=== PATIENT | male | born 1990 | race Caucasian/White ===

== ENCOUNTER 2019-01-19 13:44 | Emergency (ER) | payer OTHER ==
[2019-01-19 13:49] VITALS: RESP 18; TEMP 99
[2019-01-19] MEDS ORDERED: IBUPROFEN 600 MG STARTER PACK 4 TAB BTL PO STA (14:14)
[2019-01-19] MEDS ORDERED: IBUPROFEN 600 MG TAB PO STA (14:14)
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
--- NOTE | 2019-01-19 14:55 | XR ---
EXAMINATION TYPE: XR chest 2V DATE OF EXAM: 01/19/2019 COMPARISON: NONE HISTORY: Chest pain TECHNIQUE: Frontal and lateral views of the chest are obtained. FINDINGS: There is no focal air space opacity. No evidence for pneumothorax. No pleural effusion. The cardiac silhouette size is within normal limits. The osseous structures are grossly intact. IMPRESSION: 1. No acute cardiopulmonary process.
--- NOTE | 2019-01-19 14:55 | XR ---
EXAMINATION TYPE: XR pelvis AP view DATE OF EXAM: 01/19/2019 CLINICAL HISTORY: pain TECHNIQUE: Single view the pelvis is submitted. FINDINGS: No evidence for fracture, dislocation or bony lesion. Joint spaces are well-preserved. S I joints appear symmetric. IMPRESSION: 1. No acute fracture or dislocation seen. ICD 10 NO FRACTURE, INITIAL EVALUATION
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
[2019-01-19 15:07] LABS: Appearance,Urine Clear (Clear); Bilirubin,Urine Negative (Negative); Blood,Urine Negative (Negative); Color,Urine Yellow; Glucose,Urine (UA) Negative (Negative); Ketones,Urine Negative (Negative); Leukocyte Esterase,Urine Small (Negative); Mucus,Urine Rare /hpf; Nitrite,Urine Negative (Negative); Protein,Urine Trace (Negative); RBC,Urine 1 /hpf (0-5); Specific Gravity,Urine 1.012 (1.001-1.035); Squamous Epithelial Cell,Urine <1 /hpf (0-4); Urobilinogen,Urine <2.0 mg/dL (<2.0); WBC,Urine 2 /hpf (0-5)
[2019-01-19] MEDS ORDERED: LIDOCAINE 1% INJ 10MG/ML (20 ML MDV) SQ STA (15:09)
[2019-01-19] MEDS ORDERED: CEPHALEXIN 500MG STARTER PACK 4 CAP BTL PO STA (15:49)
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
[2019-01-19 16:45] VITALS: BP 130/84; PULSE 84
== END 2019-01-19 16:36 | disposition home or self-care (01) ==
LOC: EC 13:44
DX: S51.011A Laceration without foreign body of right elbow, initial encounter (principal); M25.562 Pain in left knee; M25.572 Pain in left ankle and joints of left foot; F17.200 Nicotine dependence, unspecified, uncomplicated; V85.5XXA Driver of special construction vehicle injured in nontraffic accident, initial encounter; Y92.009 Unspecified place in unspecified non-institutional (private) residence as the place of occurrence of the external cause; Y99.0 Civilian activity done for income or pay
CPT/HCPCS: 81001; 72170; 73080; 73090; 73564; 73610; 71046; 99285; 12002; J2001

== ENCOUNTER 2019-04-12 18:50 | Emergency (ER) | payer OTHER ==
[2019-04-12 19:00] VITALS: BP 139/90; PULSE 85; RESP 20; TEMP 99.2
[2019-04-12] MEDS ORDERED: IBUPROFEN 600 MG TAB PO STA (19:19)
--- NOTE | 2019-04-12 19:51 | XR ---
EXAMINATION TYPE: XR shoulder complete RT DATE OF EXAM: 04/12/2019 COMPARISON: NONE HISTORY: Pain TECHNIQUE: 3 views FINDINGS: I see no fracture nor dislocation. Joint spaces are normal. There are no pathologic calcifi cations. IMPRESSION: Negative right shoulder exam.
--- NOTE | 2019-04-12 19:52 | XR ---
EXAMINATION TYPE: XR chest 2V DATE OF EXAM: 04/12/2019 COMPARISON: 01/19/2019 HISTORY: Shoulder pain TECHNIQUE: Frontal and lateral views of the chest are obtained. FINDINGS: Heart and mediastinum are normal. Lungs are clear. Diaphragm is normal. Bony thorax appear s intact. IMPRESSION: Normal chest. No change.
--- NOTE | 2019-04-12 20:37 | ED ---
General Adult HPI - General Chief complaint: Fall Stated complaint: Shoulder Injury Time Seen by Provider: 04/12/19 19:04 Source: patient, RN notes reviewed, old records reviewed Mode of arrival: ambulatory Limitations: no limitations - History of Present Illness Initial comments: 28-year-old male patient presents to ED with chief complaint of right shoulder injury. Patient reports that he was at work today when he slipped on ice, patient reports that he fell backwards he caught himself with his right arm. Patient states felt a pop and pain in his right shoulder. Patient was a has a pain in his shoulder since. Denies any other injury. Denies any trauma to head or neck. Systemic: Pt denies fatigue, fever/chills, rash. Pt denies weakness, night sweats, weight loss. Neuro: Pt denies headache, visual disturbances, syncope or pre-syncope. HEENT: Pt denies ocular discharge or irritation, otalgia, rhinorrhea, pharyngitis or notable lymphadenopathy. Cardiopulmonary: Pt denies chest pain, SOB, heart palpitations, dyspnea on exertion. Abdominal/GI: Pt denies abdominal pain, n/v/d. : Pt denies dysuria, burning w/ urination, frequency/urgency. Denies new onset urinary or bowel incontinence. Neuro: Pt denies new onset weakness, paresthesias. - Related Data Previous Rx's Medication Instructions Recorded Cephalexin [Keflex] 500 mg PO Q6HR 3 Days #12 cap 01/19/19 Allergies Allergy/AdvReac Type Severity Reaction Status Date / Time No Known Allergies Allergy Verified 04/12/19 19:00 Review of Systems ROS Statement: Those systems with pertinent positive or pertinent negative responses have been documented in the HPI. ROS Other: All systems not noted in ROS Statement are negative. Past Medical History Past Medical History: No Reported History History of Any Multi-Drug Resistant Organisms: None Reported Additional Past Surgical History / Comment(s): JAW Past Psychological History: No Psychological Hx Reported Smoking Status: Current every day smoker Past Alcohol Use History: Rare Past Drug Use History: None Reported General Exam - General Exam Comments Initial Comments: Constitutional: NAD, AOX3, Pt has pleasant affect. HEENT: NC/AT, trachea midline, neck supple, no lymphadenopathy. Posterior pharynx non erythematous, without exudates. External ears appear normal, without discharge. Mucous membranes moist. Eyes PERRLA, EOM intact. There is no scleral icterus. No pallor noted. Cardiopulmonary: RRR, no murmurs, rubs or gallops, no JVD noted. Lungs CTAB in anterior and posterior regan. No peripheral edema. Abdominal exam: Abdomen soft and non-distended. Abdomen non-tender to palpation in all 4 quadrants. Bowel sounds active in LLQ. No hepatosplenomegaly. No ecchymosis Neuro: CN II-XII grossly intact. No nuchal rigidity. No raccon eyes, no vazquez sign, no hemotympanum. No cervical spinal tenderness. MSK: Right anterior shoulder mildly tender to palpation. No localized area tenderness, no before meals joint tenderness. Full active range of motion is intact. Empty can test is positive. Painful arc is positive. Neurovascularly intact. Slightly diminished strength on right side compared to left. No posterior calf tenderness bilaterally, homans sign negative bilaterally. Posterior tibialis and radial pulse +2 bilaterally. Sensation intact in upper and lower extremities. Full active ROM in upper and lower extremities, 5/5 stregnth. Limitations: no limitations Course Vital Signs 04/12/19 18:56 Temperature 99.2 F Pulse Rate 85 Respiratory 20 Rate Blood Pressure 139/90 O2 Sat by Pulse 99 Oximetry Medical Decision Making - Medical Decision Making 28-year-old male patient presents to ED with chief complaint of right shoulder strain following an injury from earlier today. Patient vital signs are stable, afebrile. Physical exam displayed right anterior shoulder mildly tender to palpation. Empty can test positive. Slight decreased strength on the right side. Neurovascularly intact. Plain films of shoulder and chest x-ray are negative. Edition for possible rotator cuff injury. Patient discharged with outpatient orthopedic follow-up as well as occupational health follow-up. Case discussed with Dr. Daigle. Disposition Clinical Impression: Shoulder sprain Disposition: HOME SELF-CARE Condition: Stable Instructions (If sedation given, give patient instructions): Shoulder Sprain (ED) Additional Instructions: Follow-up with primary care provider and orthopedic consult tomorrow. Do not use right upper extremity for heavy lifting or vigorous exercise. Return to ER if condition worsens. Is patient prescribed a controlled substance at d/c from ED?: No Referrals: None,Stated [Primary Care Provider] - 1-2 days Hermilo Hardwick DO [Medical Doctor] - 1-2 days
== END 2019-04-12 20:56 | disposition home or self-care (01) ==
LOC: EC 18:50
DX: S43.401A Unspecified sprain of right shoulder joint, initial encounter (principal); F17.200 Nicotine dependence, unspecified, uncomplicated; W00.0XXA Fall on same level due to ice and snow, initial encounter; Y99.0 Civilian activity done for income or pay; Y92.69 Other specified industrial and construction area as the place of occurrence of the external cause
CPT/HCPCS: 71046; 99284